=== PATIENT | female | born 1985 | race Caucasian/White ===

== ENCOUNTER 2022-02-06 07:19 | Emergency (ER) | payer OTHER ==
[~2022-02-06] VITALS: Ht 165.1 cm; Wt 72.0 kg
[2022-02-06] MEDS ORDERED: ondansetron 4mg rapidly disintigrating tab PO ONE (07:45)
--- NOTE | 2022-02-06 09:04 | NUR ---
pt came back from ct scan.
--- NOTE | 2022-02-06 09:50 | NUR ---
pt c/o of headache notified dr coombs ,verbal order to order tylenol 650 mg po once for headache.
[2022-02-06] MEDS ORDERED: acetaminophen 325mg tablet PO ONE (09:55)
[2022-02-06] MEDS ORDERED: ibuprofen 200mg tablet PO ONE (10:00)
[2022-02-06] MEDS ORDERED: ONDA8TAB13 PO (10:02)
[2022-02-06 10:07] VITALS: BP 129/80
== END 2022-02-06 10:37 | disposition home or self-care (01) ==
LOC: ER 07:19
DX: S06.0X0A Concussion without loss of consciousness, initial encounter (principal); W18.39XA Other fall on same level, initial encounter; Y93.89 Activity, other specified; Y92.89 Other specified places as the place of occurrence of the external cause; Y99.8 Other external cause status
CPT/HCPCS: 70450; 70486; 72125; 99284

== ENCOUNTER 2023-07-11 09:42 | Outpatient (CLI) | payer OTHER ==
[~2023-07-11 09:42] MED LIST: ONDA8TAB13 PO
== END 2023-07-11 23:59 | disposition home or self-care (01) ==
LOC: RAD 09:42
PROVIDERS: ATTEND Nurse Practitioner Family
DX: R94.01 Abnormal electroencephalogram [EEG] (principal); R56.9 Unspecified convulsions
CPT/HCPCS: 95819